=== PATIENT | male | born 1970 | race Asian ===

== ENCOUNTER 2022-04-15 09:11 | Outpatient (CLI) | payer BC, SELFPAY ==
[2022-04-15 09:50] LABS: INR, Point of Care* 2.8 (0.8-1.4)
[2022-04-15 09:52] LABS: Hematocrit 41.4 % (37.0-53.0); Hemoglobin* 13.4 gm/dL (13.5-17.5); Mean Corpuscular HGB Conc 32 gm/dL (32-36); Mean Corpuscular Hemoglobin 29 pg (26-34); Mean Corpuscular Volume 90 fL (80-100); Platelet Count* 255 K/uL (140-440); White Blood Count* 5.45 K/uL (4.50-11.00)
[2022-04-15 09:53] LABS: Slide Review Reflex No
[2022-04-15 13:39] LABS: Chloride* 105 mmol/L (96-114)
[2022-04-15 13:40] LABS: Albumin* 4.4 g/dL (3.3-5.0); Sodium* 139 mmol/L (135-149)
[2022-04-15 13:41] LABS: Potassium* 4.1 mmol/L (3.6-5.1)
[2022-04-15 13:43] LABS: Alanine Aminotransferase* 26 U/L (4-50); Alkaline Phosphatase* 100 U/L (40-150); Aspartate Amino Transferase* 33 U/L (12-35); Bilirubin Total* 0.4 mg/dL (0.1-1.5); Blood Urea Nitrogen* 17 mg/dL (7-30); Carbon Dioxide* 27 mmol/L (20-32); Cholesterol* 173 mg/dL (90-199); Creatinine* 0.6 mg/dL (0.5-1.5); Estimated Glomerular Filt Rate 118 ml/min; Glucose* 105 mg/dL (60-115); Total Protein* 7.3 g/dL (6.0-8.3); Triglycerides* 102 mg/dL (40-149)
[2022-04-15 13:44] LABS: HDL Cholesterol* 44 mg/dL (>=40); LDL Cholesterol Calculated 109 mg/dL (<100)
[2022-04-15 14:29] LABS: Hepatitis C Virus Antibody* Negative (Negative)
== END 2022-04-15 09:12 | disposition home or self-care (01) ==
PROVIDERS: PCP Family Medicine; Visit Provider Family Medicine
DX: Z00.00 Encounter for general adult medical examination without abnormal findings (principal); I10 Essential (primary) hypertension; E78.5 Hyperlipidemia, unspecified; Z79.01 Long term (current) use of anticoagulants; Z95.2 Presence of prosthetic heart valve; Z13.6 Encounter for screening for cardiovascular disorders
CPT/HCPCS: 80053; 80061; 85027; 85610; 86803

== ENCOUNTER 2022-04-28 08:06 | Outpatient (CLI) | payer BC, SELFPAY ==
[2022-04-28 12:44] LABS: INR 3.29 (0.91-1.10); Prothrombin Time 33.7 Seconds
== END 2022-04-28 08:07 | disposition home or self-care (01) ==
LOC: FRMREF 08:07
PROVIDERS: PCP Family Medicine; Visit Provider Family Medicine
DX: Z79.01 Long term (current) use of anticoagulants (principal); Z95.2 Presence of prosthetic heart valve
CPT/HCPCS: 85610

== ENCOUNTER 2022-05-17 08:26 | Outpatient (CLI) | payer BC, SELFPAY ==
[2022-05-17 13:46] LABS: INR 2.92 (0.91-1.10); Prothrombin Time 30.8 Seconds
== END 2022-05-17 08:27 | disposition home or self-care (01) ==
PROVIDERS: PCP Family Medicine; Visit Provider Family Medicine
DX: Z79.01 Long term (current) use of anticoagulants (principal)
CPT/HCPCS: 85610

== ENCOUNTER 2023-05-26 13:06 | Outpatient (CLI) | payer BC, SELFPAY ==
[2023-05-26 22:05] LABS: Total Protein Urine < 5 mg/dL
[2023-05-26 22:06] LABS: Creatinine Urine 147.2 mg/dL
[2023-05-26 22:11] LABS: Microalbumin Creatinine Ratio 0 mg/g (0-30); Microalbumin Urine 1 mg/dL
== END 2023-05-26 13:07 | disposition home or self-care (01) ==
PROVIDERS: PCP Family Medicine; Visit Provider Family Medicine
DX: Z00.00 Encounter for general adult medical examination without abnormal findings (principal); I10 Essential (primary) hypertension; E11.9 Type 2 diabetes mellitus without complications; E78.5 Hyperlipidemia, unspecified; Z13.6 Encounter for screening for cardiovascular disorders
CPT/HCPCS: 80053; 80061; 82043; 82570; 84156

== ENCOUNTER 2023-08-01 14:17 | Outpatient (CLI) | payer BC, SELFPAY | END 2023-08-01 14:18 | disposition home or self-care (01) | LOC: NFLDREF 08-03 06:10 | PROVIDERS: PCP Family Medicine; Referring Provider Family Medicine; Visit Provider Family Medicine | DX: Z79.01 Long term (current) use of anticoagulants (principal) | CPT/HCPCS: 85610 ==

== ENCOUNTER 2023-12-13 14:15 | Outpatient (CLI) | payer BC, SELFPAY | END 2023-12-13 14:16 | disposition home or self-care (01) | LOC: NFLDREF 01-02 08:34 | PROVIDERS: PCP Family Medicine; Referring Provider Family Medicine; Visit Provider Family Medicine | DX: Z79.01 Long term (current) use of anticoagulants (principal) | CPT/HCPCS: 85610 ==

== ENCOUNTER 2024-03-29 14:24 | Outpatient (CLI) | payer BC, SELFPAY | END 2024-03-29 14:25 | disposition home or self-care (01) | LOC: NFLDREF 04-03 09:44 | PROVIDERS: PCP Family Medicine; Referring Provider Family Medicine; Visit Provider Family Medicine | DX: I48.92 Unspecified atrial flutter (principal); Z79.01 Long term (current) use of anticoagulants | CPT/HCPCS: 85610 ==

== ENCOUNTER 2024-08-27 09:45 | Outpatient (CLI) | payer BC, SELFPAY | END 2024-08-27 09:46 | disposition home or self-care (01) | PROVIDERS: PCP Family Medicine; Visit Provider Family Medicine | DX: I10 Essential (primary) hypertension (principal); E78.5 Hyperlipidemia, unspecified; R30.0 Dysuria; I50.21 Acute systolic (congestive) heart failure; Z12.5 Encounter for screening for malignant neoplasm of prostate; Z13.1 Encounter for screening for diabetes mellitus; Z79.01 Long term (current) use of anticoagulants; Z95.2 Presence of prosthetic heart valve | CPT/HCPCS: 80053; 80061; 82043; 82570; 87086; G0103 ==

== ENCOUNTER 2024-12-03 14:19 | Outpatient (CLI) | payer BC, SELFPAY | END 2024-12-03 14:20 | disposition home or self-care (01) | LOC: NFLDREF 12-11 22:55 | PROVIDERS: PCP Family Medicine; Referring Provider Family Medicine; Visit Provider Family Medicine | DX: Z79.01 Long term (current) use of anticoagulants (principal); I48.92 Unspecified atrial flutter | CPT/HCPCS: 85610 ==

== ENCOUNTER 2024-12-10 14:17 | Outpatient (CLI) | payer BC, SELFPAY | END 2024-12-10 14:18 | disposition home or self-care (01) | LOC: NFLDREF 12-18 10:38 | PROVIDERS: PCP Family Medicine; Referring Provider Family Medicine; Visit Provider Family Medicine | DX: Z79.01 Long term (current) use of anticoagulants (principal); I48.92 Unspecified atrial flutter | CPT/HCPCS: 85610 ==

== ENCOUNTER 2024-12-24 14:14 | Outpatient (CLI) | payer BC, SELFPAY | END 2024-12-24 14:15 | disposition home or self-care (01) | LOC: NFLDREF 12-28 01:08 | PROVIDERS: PCP Family Medicine; Referring Provider Family Medicine; Visit Provider Family Medicine | DX: Z79.01 Long term (current) use of anticoagulants (principal); I48.92 Unspecified atrial flutter | CPT/HCPCS: 85610 ==

== ENCOUNTER 2025-01-09 14:17 | Outpatient (CLI) | payer BC, SELFPAY | END 2025-01-09 14:18 | disposition home or self-care (01) | LOC: NFLDREF 01-13 02:41 | PROVIDERS: PCP Family Medicine; Referring Provider Family Medicine; Visit Provider Family Medicine | DX: Z79.01 Long term (current) use of anticoagulants (principal) | CPT/HCPCS: 85610 ==

== ENCOUNTER 2025-01-28 14:25 | Outpatient (CLI) | payer BC, SELFPAY | END 2025-01-28 14:26 | disposition home or self-care (01) | LOC: NFLDREF 01-30 02:10 | PROVIDERS: PCP Family Medicine; Referring Provider Family Medicine; Visit Provider Family Medicine | DX: Z79.01 Long term (current) use of anticoagulants (principal) | CPT/HCPCS: 85610 ==

== ENCOUNTER 2025-05-01 14:26 | Outpatient (CLI) | payer BC, SELFPAY | END 2025-05-01 14:27 | disposition home or self-care (01) | LOC: NFLDREF 05-06 08:02 | PROVIDERS: PCP Family Medicine; Referring Provider Family Medicine; Visit Provider Family Medicine | DX: Z79.01 Long term (current) use of anticoagulants (principal); I48.92 Unspecified atrial flutter | CPT/HCPCS: 85610 ==

== ENCOUNTER 2025-05-16 14:30 | Outpatient (CLI) | payer BC, SELFPAY | END 2025-05-16 14:31 | disposition home or self-care (01) | LOC: NFLDREF 05-18 19:17 | PROVIDERS: PCP Family Medicine; Referring Provider Family Medicine; Visit Provider Family Medicine | DX: Z95.2 Presence of prosthetic heart valve (principal); Z79.01 Long term (current) use of anticoagulants | CPT/HCPCS: 85610 ==